=== PATIENT | male | born 1995 | race Hispanic/Latino ===

== ENCOUNTER 2018-02-12 06:42 | Emergency (ER) | payer OTHER ==
[2018-02-12] MEDS ORDERED: HYDROCODONE/APAP 5/325 MG TAB ONE (07:29)
[2018-02-12] MEDS ORDERED: DERMABOND SKIN ADHESIVE TOP ONE (07:30)
[2018-02-12] MEDS ORDERED: ONDANSETRON 4 MG (ODT) TAB ONE (07:30)
--- NOTE | 2018-02-12 07:43 | ER ---
Nurse's Notes [facility] Name: Charles Gibson Age: 22 yrs Sex: Male : 1995 Arrival Date: 02/12/2018 Time: 06:46 Bed 8 Private MD: Diagnosis: Crushing injury of face;Laceration without foreign body of unspecified part of head Presentation: 02/12 06:47 Presenting complaint: TDC Officer report patient's head got cath into the door. Patient ao presented with a small laceration in the left ear. Transition of care: patient was not received from another setting of care. Mechanism of Injury: resulted from Head injury. Onset of symptoms was February 12, 2018 at 06:00. Risk Assessment: Do you want to hurt yourself or someone else? Patient reports no desire to harm self or others. Initial Sepsis Screen: Does the patient meet any 2 criteria? No. Patient's initial sepsis screen is negative. Does the patient have a suspected source of infection? Yes: Skin breakdown/wound. Care prior to arrival: None. 06:47 Method Of Arrival: Law Enforcement: [place] [employer] ao 06:47 Acuity: JHONY 3 ao Triage Assessment: 06:56 General: Appears in no apparent distress. Behavior is cooperative, appropriate for age. ao Neuro: Reports headache. Historical: - Allergies: 06:52 No Known Allergies; ao - Home Meds: 06:52 None [Active]; ao - PMHx: 06:52 Anxiety; ao - PSHx: 06:52 None; ao - Immunization history:: Adult Immunizations up to date. - Social history:: Smoking status: Patient/guardian denies using tobacco, Patient/guardian denies using alcohol, street drugs. - Ebola Screening: : Patient negative for fever greater than or equal to 101.5 degrees Fahrenheit, and additional compatible Ebola Virus Disease symptoms Patient denies exposure to infectious person Patient denies travel to an Ebola-affected area in the 21 days before illness onset. Screenin:55 Abuse screen: Denies threats or abuse. Denies injuries from another. Nutritional ao screening: No deficits noted. Tuberculosis screening: No symptoms or risk factors identified. Fall Risk None identified. Assessment: 06:53 General: Appears in no apparent distress. comfortable, Behavior is cooperative, ao appropriate for age. Pain: Complains of pain in left ear Pain currently is 4 out of 10 on a pain scale. Neuro: Level of Consciousness is awake, alert, obeys commands, Oriented to person, place, time, situation, Appropriate for age Moves all extremities. Speech is normal, Facial symmetry appears normal. Cardiovascular: Capillary refill < 3 seconds Patient's skin is warm and dry. Respiratory: Airway is patent Respiratory effort is even, unlabored, Respiratory pattern is regular, symmetrical. GI: Abdomen is non-distended. : No signs and/or symptoms were reported regarding the genitourinary system. EENT: No signs and/or symptoms were reported regarding the EENT system. Derm: Wound noted Other: Laceration about 2 cn longin the left ear. Bleeding controlled. Musculoskeletal: Range of motion:. 07:30 Reassessment: Patient appears in no apparent distress at this time. Patient and/or hb family updated on plan of care and expected duration. Pain level reassessed. Patient is alert, oriented x 3, equal unlabored respirations, skin warm/dry/pink. Vital Signs: 06:50 BP 114 / 65; Pulse 64; Resp 20; Temp 99.9(A); Pulse Ox 100% on R/A; Weight 62.14 kg ao (R); Height 5 ft. 3 in. (160.02 cm) (R); Pain 4/10; 08:01 BP 115 / 78; Pulse 62; Resp 18; Temp 98.7; Pulse Ox 99% on R/A; ph 06:50 Body Mass Index 24.27 (62.14 kg, 160.02 cm) ao [place] Coma Score: 06:47 Eye Response: spontaneous(4). Verbal Response: oriented(5). Motor Response: obeys ao commands(6). Total: 15. 06:52 Eye Response: spontaneous(4). Verbal Response: oriented(5). Motor Response: obeys snw commands(6). Total: 15. ED Course: 06:46 Patient arrived in ED. ao 06:47 [facility]C [facility]. snw 06:47 Neftali Pierce MD is Attending Physician. snw 06:50 Triage completed. ao 06:52 Arm band placed on right wrist. Patient placed in an exam room, on a stretcher, on ao oxygen, on pulse oximetry, Patient notified of wait time. 06:56 Patient has correct armband on for positive identification. Pulse ox on. NIBP on. ao 07:03 CT Head Brain wo Cont In Process Unspecified. EDMS 07:04 CT completed. Patient tolerated procedure well. Patient moved back from CT. bq 07:45 Assist provider with laceration repair on left ear that was 2.5 cm. or less using ph Dermabond. Set up tray. Performed by Christi MATUTE Patient tolerated. Patient did not have IV access during this emergency room visit. 07:57 Jade Gracia, RN is Primary Nurse. ph Administered Medications: 07:30 Drug: [place] 5 mg-325 mg 1 tabs Route: PO; hb 07:59 Follow up: Response: No adverse reaction; Pain is decreased hb 07:30 Drug: Zofran 4 mg Route: PO; hb 07:59 Follow up: Response: No adverse reaction hb Outcome: 07:43 Discharge ordered by . snemerson 07:59 Discharged to Law Enforcement ph 07:59 Condition: good 07:59 Discharge instructions given to patient, Instructed on discharge instructions, follow up and referral plans. wound care, Demonstrated understanding of instructions, follow-up care, wound care. 08:02 Patient left the ED. ph Signatures: Dispatcher [employer] EDGA Christi De Paz FNP-C FNP-CsnAshly Dior Patricia, RN RN ph Gilmer Hernandes RN RN ao Baxter, Heather, RN RN hb
--- NOTE | 2018-02-12 07:43 | EDPHYS ---
Physician Documentation [facility] Name: Charles Gibson Age: 22 yrs Sex: Male : 1995 Arrival Date: 02/12/2018 Time: 06:46 Bed 8 Private MD: ED Physician Neftali Pierce HPI: 02/12 06:52 This 22 yrs old Male presents to ER via Law Enforcement with complaints of snw Head Injury-Adult. 06:52 The patient or guardian reports crush injury. The complaints affect the left ear and snw right occipital area. Context of injury: The problem was sustained at fdc. Onset: The symptoms/episode began/occurred suddenly, today. Associated signs and symptoms: Loss of consciousness: This patient did not experience any loss of consciousness. Pertinent positives: laceration over left ear. Severity of symptoms: At their worst the symptoms were moderate. The patient has not experienced similar symptoms in the past. The patient has not recently seen a physician. pt was looking out of his cell when the bars closed and it closed on his head. Historical: - Allergies: 06:52 No Known Allergies; ao - Home Meds: 06:52 None [Active]; ao - PMHx: 06:52 Anxiety; ao - PSHx: 06:52 None; ao - Immunization history:: Adult Immunizations up to date. - Social history:: Smoking status: Patient/guardian denies using tobacco, Patient/guardian denies using alcohol, street drugs. - Ebola Screening: : Patient negative for fever greater than or equal to 101.5 degrees Fahrenheit, and additional compatible Ebola Virus Disease symptoms Patient denies exposure to infectious person Patient denies travel to an Ebola-affected area in the 21 days before illness onset. ROS: 06:51 Constitutional: Negative for fever, chills, and weight loss, Eyes: Negative for injury, snw pain, redness, and discharge, ENT: Negative for injury, pain, and discharge, Neck: Negative for injury, pain, and swelling, Cardiovascular: Negative for chest pain, palpitations, and edema, Respiratory: Negative for shortness of breath, cough, wheezing, and pleuritic chest pain, Abdomen/GI: Negative for abdominal pain, nausea, vomiting, diarrhea, and constipation, Back: Negative for injury and pain, : Negative for injury, bleeding, discharge, and swelling, MS/Extremity: Negative for injury and deformity, Skin: Negative for injury, rash, and discoloration. 06:51 Neuro: Positive for headache. Exam: 06:49 Constitutional: This is a well developed, well nourished patient who is awake, alert, snw and in no acute distress. Eyes: Pupils equal round and reactive to light, extra-ocular motions intact. Lids and lashes normal. Conjunctiva and sclera are non-icteric and not injected. Cornea within normal limits. Periorbital areas with no swelling, redness, or edema. ENT: Nares patent. No nasal discharge, no septal abnormalities noted. Tympanic membranes are normal and external auditory canals are clear. Oropharynx with no redness, swelling, or masses, exudates, or evidence of obstruction, uvula midline. Mucous membranes moist. Superior margin of pinna with laceration thru epidermis, well approximated Neck: Trachea midline, no thyromegaly or masses palpated, and no cervical lymphadenopathy. Supple, full range of motion without nuchal rigidity, or vertebral point tenderness. No Meningismus. Chest/axilla: Normal chest wall appearance and motion. Nontender with no deformity. No lesions are appreciated. Cardiovascular: Regular rate and rhythm with a normal S1 and S2. No gallops, murmurs, or rubs. Normal PMI, no JVD. No pulse deficits. Respiratory: Lungs have equal breath sounds bilaterally, clear to auscultation and percussion. No rales, rhonchi or wheezes noted. No increased work of breathing, no retractions or nasal flaring. Abdomen/GI: Soft, non-tender, with normal bowel sounds. No distension or tympany. No guarding or rebound. No evidence of tenderness throughout. Back: No spinal tenderness. No costovertebral tenderness. Full range of motion. Skin: Warm, dry with normal turgor. Normal color with no rashes, no lesions, and no evidence of cellulitis. MS/ Extremity: Pulses equal, no cyanosis. Neurovascular intact. Full, normal range of motion. Neuro: Awake and alert, GCS 15, oriented to person, place, time, and situation. Cranial nerves II-XII grossly intact. Motor strength 5/5 in all extremities. Sensory grossly intact. Cerebellar exam normal. Normal gait. 06:49 Head/face: Noted is contusion, of the right occipital area, swelling. Vital Signs: 06:50 BP 114 / 65; Pulse 64; Resp 20; Temp 99.9(A); Pulse Ox 100% on R/A; Weight 62.14 kg ao (R); Height 5 ft. 3 in. (160.02 cm) (R); Pain 4/10; 08:01 BP 115 / 78; Pulse 62; Resp 18; Temp 98.7; Pulse Ox 99% on R/A; ph 06:50 Body Mass Index 24.27 (62.14 kg, 160.02 cm) ao [place] Coma Score: 06:47 Eye Response: spontaneous(4). Verbal Response: oriented(5). Motor Response: obeys ao commands(6). Total: 15. 06:52 Eye Response: spontaneous(4). Verbal Response: oriented(5). Motor Response: obeys snw commands(6). Total: 15. MDM: 06:49 Patient medically screened. snw 07:44 Data reviewed: vital signs, nurses notes, radiologic studies, CT scan. Data snw interpreted: Pulse oximetry: on room air is 100 %. Interpretation: normal. Counseling: I had a detailed discussion with the patient and/or guardian regarding: the historical points, exam findings, and any diagnostic results supporting the discharge/admit diagnosis, radiology results, the need for outpatient follow up, to return to the emergency department if symptoms worsen or persist or if there are any questions or concerns that arise at home. Special discussion: Based on the patient's history, exam and DX evaluation, there is no indication for emergent intervention or inpatient [place]. It is understood by the patient/guardian that if the SXs persist or worsen they need to return immediately for re-evaluation. Based on the history and exam findings, there is no indication for further emergent testing or inpatient evaluation. I discussed with the patient/guardian the need to see the primary care provider for further evaluation of the symptoms. 06 06:48 Order name: CT Head Brain wo Cont snw 02/12 06:48 Order name: Dermabond; Complete Time: 07:58 snw Administered Medications: 07:30 Drug: [place] 5 mg-325 mg 1 tabs Route: PO; hb 07:59 Follow up: Response: No adverse reaction; Pain is decreased hb 07:30 Drug: Zofran 4 mg Route: PO; hb 07:59 Follow up: Response: No adverse reaction Disposition: 12:42 Co-signature as Attending Physician, Neftali Pierce MD. Disposition: 02/12/18 07:43 Discharged to Home. Impression: Crushing injury of face, Laceration without foreign body of unspecified part of head. - Condition is Stable. - Discharge Instructions: Tissue Adhesive Wound Care, Head Injury, Adult, Laceration Care, Adult. - Medication Reconciliation Form, Thank You Letter, Antibiotic Education, Prescription Opioid Use form. - Follow up: Private Physician; When: 1 week; Reason: Recheck today's complaints, Continuance of care, Re-evaluation by your physician. Follow up: Emergency Department; When: As needed; Reason: Worsening of condition. Signatures: Dispatcher [employer] EDMS Christi De Paz, JUAN-[employer] INTERN-Csnw Jade Gracia RN RN ph Ortiz, Alex RN Estefany Potter RN RN hb Starr, Gregory, MD MD Corrections: (The following items were deleted from the chart) 08:02 07:43 02/12/2018 07:43 Discharged to Home. Impression: Crushing injury of face; ph Laceration without foreign body of unspecified part of head. Condition is Stable. Forms are Medication Reconciliation Form, Thank You Letter, Antibiotic Education, Prescription Opioid Use. Follow up: Private Physician; When: 1 week; Reason: Recheck today's complaints, Continuance of care, Re-evaluation by your physician. Follow up: Emergency Department; When: As needed; Reason: Worsening of condition. snw
--- NOTE | 2018-02-12 08:52 | RAD REPORT ---
EXAM DESCRIPTION: CT - Head Brain Wo Cont - 02/12/2018 7:03 am CLINICAL HISTORY: Head injury with nausea COMPARISON: January 2017 TECHNIQUE: Computed axial tomography of the head was obtained. IV contrast was not requested. All CT scans are performed using dose optimization technique as appropriate and may include automated exposure control or mA/KV adjustment according to patient size. FINDINGS: An intracranial bleed is not seen . The ventricles are normal in caliber. No extra-axial fluid collection is noted. Fluid within the sinuses/ mastoids is not seen. IMPRESSION: No acute intracranial abnormality is seen. If patient's symptoms persist MRI of the bra in would be recommended.
== END 2018-02-12 08:02 | disposition home or self-care (01) ==
LOC: ER 06:42
PROC: 0HQ3XZZ Repair Left Ear Skin, External Approach (ICD-10-PCS; principal; 2018-02-12)
DX: S01.91XA Laceration without foreign body of unspecified part of head, initial encounter (principal); X58.XXXA Exposure to other specified factors, initial encounter; Y93.89 Activity, other specified; Y92.143 Cell of prison as the place of occurrence of the external cause
CPT/HCPCS: 70450; 99285